=== PATIENT | female | born 1945 | race Caucasian/White ===

== ENCOUNTER → 2024-03-08 10:31 | Outpatient (REF) | payer MEDICARE, OTHER, SELFPAY | LOC: WDC 10:31 | PROVIDERS: ATTENDING PHYSICIAN Obstetrics & Gynecology Gynecology; FAMILY PHYSICIAN Internal Medicine Geriatric Medicine | DX: Z12.31 Encounter for screening mammogram for malignant neoplasm of breast (principal) | CPT/HCPCS: 77063; 77067 ==

== ENCOUNTER → 2024-08-07 09:23 | Outpatient (REF) | payer MEDICARE, OTHER, SELFPAY ==
[2024-08-07 10:07] LABS: Urine Albumin Negative (Neg - Trace); Urine Bilirubin Negative (Negative); Urine Character Clear (Clear); Urine Color Yellow; Urine Glucose Negative (Negative); Urine Ketone Negative (Negative); Urine Leukocyte 1+ (Negative); Urine Nitrite Negative (Negative); Urine Occult Blood Negative (Negative); Urine Urobilinogen Negative (Neg - 1+)
[2024-08-07 10:47] LABS: Urine Bacteria Moderate (Negative); Urine Red Blood Cell 0-2 /HPF (0-2); Urine Squamous Cell >30 /LPF (Few)
[2024-08-07 12:03] LABS: % Basophils 0.2 % (0-2); % Eosinophils 18.8 % (0-6); % Immature Granulocytes 0.2 % (0-0.5); % Lymphocytes 26.4 % (20.5-51.1); % Monocytes 11.5 % (1.7-9.3); % Neutrophils 43.1 % (42.2-75.2); Absolute Eosinophils 0.9 10^3/uL (0-0.7); Absolute Lymphocytes 1.3 10^3/uL (1.2-3.4); Absolute Monocytes 0.6 10^3/uL (0.1-0.6); Absolute Neutrophils 2.1 10^3/uL (1.4-6.5); Hematocrit 41.8 % (37.0-47.0); Hemoglobin 13.7 g/dL (12.0-16.0); Mean Corp Hgb Conc. 33.7 g/dL (33.0-37.0); Mean Corpuscular Hgb 34.8 pg (27.0-31.0); Mean Platelet Volume 10.2 fL (7.4-10.4); Nucleated Red Blood Cells % 0 %; Platelet Count 118 10^3/uL (130-400); Red Cell Dist. Width 12.5 % (11.5-14.5); White Blood Cell Count 4.9 10^3/uL (4.8-10.8)
[2024-08-07 13:09] LABS: ALT (SGPT) 27 U/L (0-35); AST (SGOT) 36 U/L (14-36); Albumin 4.6 g/dl (3.5-5.0); Alkaline Phosphatase 72 U/L (38-126); Blood Urea Nitrogen 22 mg/dl (7-17); Calcium 9.5 mg/dl (8.4-10.2); Carbon Dioxide 30 mmol/L (22-30); Chloride 104 mmol/L (98-107); Glucose 85 mg/dl (70-99); HDL Cholesterol 88 mg/dl; Potassium 4.4 mmol/L (3.5-5.1); Sodium 145 mmol/L (135-145); Total Bilirubin 1.1 mg/dl (0.2-1.3); Total Cholesterol 260 mg/dl (50-199); Total Protein 7.4 g/dl (6.3-8.2); Triglyceride 85 mg/dl (10-149); Very Low Density Lipoprotein 17 mg/dl (0-30); eGFR > 60.00
[2024-08-07 13:10] LABS: LDL Cholesterol, Calculated 155 mg/dl
[2024-08-07 13:59] LABS: TSH 1.33 uIU/ml (0.47-4.68)
== END ==
LOC: REG 09:23
PROVIDERS: ATTENDING PHYSICIAN Internal Medicine Geriatric Medicine
DX: Z00.00 Encounter for general adult medical examination without abnormal findings (principal); E55.9 Vitamin D deficiency, unspecified; E78.2 Mixed hyperlipidemia; K90.41 Non-celiac gluten sensitivity; Z13.29 Encounter for screening for other suspected endocrine disorder
CPT/HCPCS: 36415; 80053; 80061; 81003; 81015; 82306; 84443; 85025

== ENCOUNTER → 2024-10-25 09:25 | Outpatient (REF) | payer MEDICARE, OTHER, SELFPAY | LOC: HWRAD 09:25 | PROVIDERS: ATTENDING PHYSICIAN Internal Medicine Geriatric Medicine | DX: E78.2 Mixed hyperlipidemia (principal) | CPT/HCPCS: 75571 ==

== ENCOUNTER → 2024-11-06 13:20 | Outpatient (REF) | payer MEDICARE, OTHER, SELFPAY | LOC: RCS 13:20 | PROVIDERS: ATTENDING PHYSICIAN Internal Medicine Geriatric Medicine | DX: E78.2 Mixed hyperlipidemia (principal); R93.1 Abnormal findings on diagnostic imaging of heart and coronary circulation; I49.1 Atrial premature depolarization; I49.3 Ventricular premature depolarization | CPT/HCPCS: 93017; 93350 ==

== ENCOUNTER → 2024-12-09 09:09 | Outpatient (REF) | payer MEDICARE, OTHER, SELFPAY | LOC: HWRAD 09:09 | PROVIDERS: ATTENDING PHYSICIAN Internal Medicine Critical Care Medicine; FAMILY PHYSICIAN Internal Medicine Geriatric Medicine | DX: J47.9 Bronchiectasis, uncomplicated (principal) | CPT/HCPCS: 71250 ==

== ENCOUNTER → 2024-12-23 12:47 | Outpatient (REF) | payer MEDICARE, OTHER, SELFPAY ==
[2024-12-23 13:57] LABS: % Basophils 0.2 % (0-2); % Lymphocytes 27.7 % (20.5-51.1); % Monocytes 10.8 % (1.7-9.3); % Neutrophils 46.3 % (42.2-75.2); Absolute Eosinophils 0.8 10^3/uL (0-0.7); Absolute Lymphocytes 1.4 10^3/uL (1.2-3.4); Absolute Monocytes 0.5 10^3/uL (0.1-0.6); Absolute Neutrophils 2.3 10^3/uL (1.4-6.5); Hematocrit 38.7 % (37.0-47.0); Hemoglobin 13.2 g/dL (12.0-16.0); Mean Corp Hgb Conc. 34.1 g/dL (33.0-37.0); Mean Corpuscular Volume 99.7 fL (81.0-99.0); Mean Platelet Volume 10.1 fL (7.4-10.4); Nucleated Red Blood Cells % 0 %; Platelet Count 113 10^3/uL (130-400); Red Blood Cell Count 3.88 10^6/uL (4.20-5.40); Red Cell Dist. Width 12.5 % (11.5-14.5)
[2024-12-23 15:21] LABS: Erythrocyte Sed Rate 6 mm/hour (0-20)
== END ==
LOC: REG 12:47
PROVIDERS: ATTENDING PHYSICIAN Internal Medicine Critical Care Medicine; FAMILY PHYSICIAN Internal Medicine Geriatric Medicine
DX: J47.9 Bronchiectasis, uncomplicated (principal)
CPT/HCPCS: 36415; 85025; 85652; 86331; 86606

== ENCOUNTER → 2025-03-27 11:01 | Outpatient (REF) | payer MEDICARE, OTHER, SELFPAY | LOC: WDC 11:01 | PROVIDERS: ATTENDING PHYSICIAN Obstetrics & Gynecology Gynecology; FAMILY PHYSICIAN Internal Medicine Geriatric Medicine | DX: Z12.31 Encounter for screening mammogram for malignant neoplasm of breast (principal); Z78.0 Asymptomatic menopausal state | CPT/HCPCS: 77063; 77067; 77080 ==

== ENCOUNTER → 2025-07-21 13:29 | Outpatient (REF) | payer MEDICARE, OTHER, SELFPAY | LOC: RAD 13:29 | PROVIDERS: ATTENDING PHYSICIAN Internal Medicine Critical Care Medicine; FAMILY PHYSICIAN Internal Medicine Geriatric Medicine | DX: I47.9 Paroxysmal tachycardia, unspecified (principal); J42 Unspecified chronic bronchitis; R89.8 Other abnormal findings in specimens from other organs, systems and tissues; R91.8 Other nonspecific abnormal finding of lung field | CPT/HCPCS: 71250 ==

== ENCOUNTER → 2025-08-11 10:17 | Outpatient (REF) | payer MEDICARE, OTHER, SELFPAY ==
[2025-08-11 11:01] LABS: Urine Character Clear (Clear)
[2025-08-11 11:03] LABS: Hematocrit 39.5 % (37.0-47.0); Hemoglobin 13.1 g/dL (12.0-16.0); Mean Corp Hgb Conc. 33.2 g/dL (33.0-37.0); Mean Corpuscular Volume 100.0 fL (81.0-99.0); Nucleated Red Blood Cells % 0 %; Platelet Count 115 10^3/uL (130-400); Red Cell Dist. Width 12.5 % (11.5-14.5)
[2025-08-11 11:15] LABS: Urine Red Blood Cell 0-2 /HPF (0-2)
[2025-08-11 11:39] LABS: ALT (SGPT) 21 U/L (0-35); AST (SGOT) 27 U/L (14-36); Albumin 4.3 g/dl (3.5-5.0); Alkaline Phosphatase 62 U/L (38-126); Blood Urea Nitrogen 15 mg/dl (7-17); Calcium 9.0 mg/dl (8.4-10.2); Carbon Dioxide 30 mmol/L (22-30); Chloride 106 mmol/L (98-107); Glucose 94 mg/dl (70-99); HDL Cholesterol 80 mg/dl; LDL Cholesterol, Calculated 145 mg/dl; Potassium 4.2 mmol/L (3.5-5.1); Sodium 139 mmol/L (135-145); Total Protein 7.0 g/dl (6.3-8.2); Very Low Density Lipoprotein 12 mg/dl (0-30); eGFR > 60.00
[2025-08-11 11:45] LABS: Vitamin D, 25-OH*** 35.4 ng/mL (30-80)
== END ==
LOC: REG 10:17
PROVIDERS: ATTENDING PHYSICIAN Internal Medicine Geriatric Medicine
DX: Z00.00 Encounter for general adult medical examination without abnormal findings (principal); Z79.899 Other long term (current) drug therapy; R79.89 Other specified abnormal findings of blood chemistry; R82.90 Unspecified abnormal findings in urine; R79.9 Abnormal finding of blood chemistry, unspecified; E78.5 Hyperlipidemia, unspecified
CPT/HCPCS: 36415; 80053; 80061; 81003; 81015; 82306; 85025